=== PATIENT | female | born 1995 | race Caucasian/White ===

== ENCOUNTER 2021-06-05 13:39 | Outpatient (CLI) | payer OTHER, SELFPAY ==
[2021-06-05 14:30] LABS: Influenza Control Positive
== END 2021-06-05 13:40 | disposition home or self-care (01) ==
LOC: ANHLAB 13:43
PROVIDERS: PCP Internal Medicine; Visit Provider Internal Medicine
DX: J02.9 Acute pharyngitis, unspecified (principal)
CPT/HCPCS: 87081; 87804